=== PATIENT | female | born 1995 | race Caucasian/White ===

== ENCOUNTER 2017-10-16 15:02 | Outpatient (CLI) | payer MEDICAID, OTHER ==
[~2017-10-16] VITALS: Ht 162.6 cm; Wt 70.9 kg
[~2017-10-16 15:02] MED LIST: IBUP-1222 PO; OXYC-302 PO; SENN-92 PO
[2017-10-16 15:20] VITALS: BP 122/72
[2017-10-16 16:11] LABS: MICROSCOPIC AUTO
[2017-10-16] MEDS ORDERED: PREN1TAB69 PO (17:25)
== END 2017-10-16 17:52 | disposition home or self-care (01) ==
LOC: LDOP 15:02
PROVIDERS: ATTEND Obstetrics & Gynecology Maternal & Fetal Medicine
DX: Z34.82 Encounter for supervision of other normal pregnancy, second trimester (principal); Z3A.27 27 weeks gestation of pregnancy
CPT/HCPCS: 59025; 81001; 99201; G0463

== ENCOUNTER 2017-10-17 21:50 | Observation (INO) | payer MEDICAID, OTHER ==
[~2017-10-17] VITALS: Ht 162.6 cm; Wt 68.1 kg
[~2017-10-17 21:50] MED LIST changes: +PREN1TAB69 PO
[2017-10-17] MEDS ORDERED: ONDANSETRON 2MG/ML, 2ML ONE (21:57)
[2017-10-17] MEDS ORDERED: LACTATED RINGERS 1,000 ML IVBOLUS ONE (22:00)
[2017-10-17] MEDS ORDERED: D5%-LACTATED RINGERS 1,000 ML IV SCH (22:00)
[2017-10-17] MEDS: ONDANSETRON 2MG/ML, 2ML IVPush PRN (22:08)
[2017-10-17 22:22] VITALS: BP 122/74
[2017-10-17] MEDS ORDERED: METOCLOPRAMIDE 5 MG/ML, 2ML ONE (22:37)
[2017-10-17] MEDS ORDERED: DIPHENHYDRAMINE 50 MG/ML, 1ML ONE (22:37)
[2017-10-17 22:38] LABS: BASOPHILS % (AUTO) 0 % (0-1); EOSINOPHILS # (AUTO) 0.03 x10^3/uL (0-0.4); EOSINOPHILS % (AUTO) 0 % (1-7); LYMPHOCYTES # (AUTO) 0.99 x10^3/uL (1-3.4); LYMPHOCYTES % (AUTO) 9 % (22-44); MD NO; MEAN CORPUSCULAR HEMOGLOBIN 32.1 pg (27.0-34.8); MEAN CORPUSCULAR HGB CONC 33.7 g/dL (32.4-35.8); MEAN CORPUSCULAR VOLUME 95.2 fL (80-100); MEAN PLATELET VOLUME 9.5 fL (7.4-10.4); MONOCYTES # (AUTO) 0.38 x10^3/uL (0.2-0.8); MONOCYTES % (AUTO) 4 % (2-9); NEUTROPHILS # (AUTO) 9.57 x10^3/uL (1.8-6.8); NEUTROPHILS % (AUTO) 87 % (42-75); PLATELET COUNT 262 x10^3/uL (130-400); RED BLOOD COUNT 3.86 x10^6/uL (3.82-5.3); RED CELL DISTRIBUTION WIDTH 14.8 % (9.6-15.2)
[2017-10-17 22:39] LABS: ALBUMIN 3.6 g/dL (3.4-5.0); ANION GAP 8 mmol/L (5-15); CALCIUM 8.7 mg/dL (8.5-10.1); CHLORIDE 105 mmol/L (98-107)
[2017-10-17 22:42] LABS: ALANINE AMINOTRANSFERASE 14 U/L (12-78); ALKALINE PHOSPHATASE 67 U/L (45-117); BILIRUBIN,TOTAL 0.3 mg/dL (0.2-1.0); CREATININE 0.71 mg/dL (0.55-1.02)
[2017-10-17] MEDS ORDERED: DIPHENHYDRAMINE 50 MG/ML, 1ML IVPush ONE (23:00)
[2017-10-17] MEDS ORDERED: PLEASE ENTER HEIGHT AND WEIGHT MC SCH (23:00)
[2017-10-17] MEDS ORDERED: METOCLOPRAMIDE 5 MG/ML, 2ML IVPush ONE (23:00)
[2017-10-17] MEDS ORDERED: PROMETHAZINE 25 MG/ML, 1ML IM ONE (23:30)
[2017-10-17] MEDS ORDERED: PROMETHAZINE 25 MG/ML, 1ML ONE (23:45)
[2017-10-18] MEDS ORDERED: PROCHLORPERAZINE 5 MG/ML, 2ML IM ONE (01:00)
[2017-10-18] MEDS ORDERED: ONDANSETRON 2MG/ML, 2ML ONE (04:45)
[2017-10-18] MEDS: ONDANSETRON 2MG/ML, 2ML IVPush PRN (04:49)
[2017-10-18] MEDS ORDERED: ONDA4TAB10 PO (06:25)
== END 2017-10-18 06:39 | disposition home or self-care (01) ==
LOC: LDOP 21:50 → LDIP 22:45
PROVIDERS: ADMIT Obstetrics & Gynecology Maternal & Fetal Medicine; ATTEND Obstetrics & Gynecology Maternal & Fetal Medicine
DX: O21.2 Late vomiting of pregnancy (principal); Z3A.26 26 weeks gestation of pregnancy
CPT/HCPCS: 36415; 59025; 80053; 83690; 85025; 96361; 96372; 96374; 96375; 96376; G0378; J0780; J1200; J2405; J2550; J2765; J7120; J7121; 96360; 99211; G0463

== ENCOUNTER 2018-01-14 05:00 | Inpatient (IN) | payer MEDICAID ==
[~2018-01-14] VITALS: Ht 165.1 cm; Wt 72.7 kg
[~2018-01-14 05:00] MED LIST changes: +ONDA4TAB10 PO
[2018-01-14] MEDS ORDERED: LACTATED RINGERS 1,000 ML IV SCH (05:04)
[2018-01-14] MEDS ORDERED: OXYTOCIN 30U/ 0.9% NaCL 500ML 500 ML IV PRN (05:04)
[2018-01-14] MEDS ORDERED: OXYTOCIN 30U/ 0.9% NaCL 500ML 500 ML IV ONE (05:04)
[2018-01-14] MEDS ORDERED: D5%-LACTATED RINGERS 1,000 ML IV SCH (05:04)
[2018-01-14] MEDS ORDERED: FENTANYL PF 100 MCG/2ML IV PRN (05:30)
[2018-01-14] MEDS ORDERED: TERBUTALINE 1 MG/ML, 1ML IVPush PRN (05:30)
[2018-01-14] MEDS ORDERED: FENTANYL PF 100 MCG/2ML IVPush PRN (05:30)
[2018-01-14 05:41] VITALS: BP 107/62
[2018-01-14 05:45] LABS: BASOPHILS # (AUTO) 0.06 x10^3/uL (0-0.1); BASOPHILS % (AUTO) 1 % (0-1); EOSINOPHILS % (AUTO) 1 % (1-7); LYMPHOCYTES # (AUTO) 1.65 x10^3/uL (1-3.4); LYMPHOCYTES % (AUTO) 19 % (22-44); MD NO; MEAN CORPUSCULAR HEMOGLOBIN 31.2 pg (27.0-34.8); MEAN CORPUSCULAR HGB CONC 34.2 g/dL (32.4-35.8); MEAN CORPUSCULAR VOLUME 91.2 fL (80-100); MEAN PLATELET VOLUME 8.8 fL (7.4-10.4); MONOCYTES # (AUTO) 0.65 x10^3/uL (0.2-0.8); MONOCYTES % (AUTO) 7 % (2-9); NEUTROPHILS # (AUTO) 6.44 x10^3/uL (1.8-6.8); NEUTROPHILS % (AUTO) 72 % (42-75); PLATELET COUNT 230 x10^3/uL (130-400); RED BLOOD COUNT 3.34 x10^6/uL (3.82-5.3); RED CELL DISTRIBUTION WIDTH 14.7 % (9.6-15.2)
[2018-01-14] MEDS ORDERED: MISOPROSTOL 200 MCG TABLET ONE (05:51)
[2018-01-14] MEDS ORDERED: OXYTOCIN 30U/ 0.9% NaCL 500ML 500 ML ONE (05:51)
[2018-01-14] MEDS ORDERED: LIDOCAINE/PF 1%, 30ML ONE (05:51)
[2018-01-14] MEDS ORDERED: FENTANYL/BUPIV./NS/PF 250 ML EPIDCONT SCH ×3 (06:45→08:04)
[2018-01-14] MEDS ORDERED: NALOXONE 0.4 MG/ML, 1ML IVPush PRN (08:30)
[2018-01-14] MEDS ORDERED: LACTATED RINGERS 1,000 ML IVBOLUS PRN (08:30)
[2018-01-14] MEDS ORDERED: EPHEDRINE 50 MG/ML, 1ML IVPush PRN (08:30)
[2018-01-14] MEDS ORDERED: FENTANYL PF 500 MCG, BUPIVACAINE/PF 0.5%, 30ML 62.5 ML in SODIUM CHLORIDE 0.9% 177.5 ML EPIDCONT SCH (09:30)
[2018-01-14] MEDS ORDERED: FENTANYL PF 100 MCG/2ML ONE (09:49)
[2018-01-14] MEDS ORDERED: BUPIVACAINE 0.25% ONE (10:20)
[2018-01-14] MEDS: LACTATED RINGERS 1,000 ML IV SCH ×2 (14:18→16:04)
[2018-01-14] MEDS ORDERED: IBUPROFEN 600 MG TABLET ONE (17:40)
[2018-01-14] MEDS: IBUPROFEN 600 MG TABLET PO PRN (17:44)
[2018-01-14] MEDS: OXYTOCIN 30U/ 0.9% NaCL 500ML 500 ML IV SCH (17:45)
[2018-01-14] MEDS ORDERED: DOCUSATE 100 MG CAPSULE PO PRN (18:00)
[2018-01-14] MEDS ORDERED: OXYcodone IR 5MG TABLET PO PRN ×2 (18:00)
[2018-01-14] MEDS ORDERED: ACETAMINOPHEN 325 MG TABLET PO PRN (18:00)
[2018-01-14 19:30] VITALS: BP 110/73
[2018-01-14] MEDS: OXYcodone/APAP 5/325MG TABLET PO PRN (20:57)
[2018-01-15] MEDS: LACTATED RINGERS 1,000 ML IV SCH ×3 (00:04→16:04)
[2018-01-15 00:30] VITALS: BP 101/65
[2018-01-15 00:56] LABS: BASOPHILS # (AUTO) 0.02 x10^3/uL (0-0.1); BASOPHILS % (AUTO) 0 % (0-1); EOSINOPHILS # (AUTO) 0.08 x10^3/uL (0-0.4); EOSINOPHILS % (AUTO) 1 % (1-7); LYMPHOCYTES # (AUTO) 1.39 x10^3/uL (1-3.4); LYMPHOCYTES % (AUTO) 14 % (22-44); MD NO; MEAN CORPUSCULAR HEMOGLOBIN 31.4 pg (27.0-34.8); MEAN CORPUSCULAR HGB CONC 34.3 g/dL (32.4-35.8); MEAN CORPUSCULAR VOLUME 91.7 fL (80-100); MEAN PLATELET VOLUME 9.2 fL (7.4-10.4); MONOCYTES # (AUTO) 0.74 x10^3/uL (0.2-0.8); MONOCYTES % (AUTO) 7 % (2-9); NEUTROPHILS # (AUTO) 7.87 x10^3/uL (1.8-6.8); NEUTROPHILS % (AUTO) 78 % (42-75); PLATELET COUNT 201 x10^3/uL (130-400); RED BLOOD COUNT 3.17 x10^6/uL (3.82-5.3); RED CELL DISTRIBUTION WIDTH 14.9 % (9.6-15.2)
[2018-01-15] MEDS: IBUPROFEN 600 MG TABLET PO PRN ×3 (01:00→16:15)
[2018-01-15] MEDS: OXYcodone/APAP 5/325MG TABLET PO PRN ×3 (01:00→11:29)
[2018-01-15] MEDS: OXYTOCIN 30U/ 0.9% NaCL 500ML 500 ML IV SCH ×2 (03:31→13:31)
[2018-01-15 05:00] VITALS: BP 107/69
[2018-01-15 07:45] VITALS: BP 111/75
[2018-01-15] MEDS ORDERED: PRENATAL VIT/IRON/FA 1 EACH TABLET PO SCH (09:00)
[2018-01-15 11:38] VITALS: BP 111/76
== END 2018-01-15 17:45 | disposition home or self-care (01) | DRG 807 ==
LOC: LDIP 05:00 → 2NW 19:25
PROVIDERS: ADMIT Obstetrics & Gynecology Maternal & Fetal Medicine; ATTEND Obstetrics & Gynecology Maternal & Fetal Medicine
PROC: 10E0XZZ Delivery of Products of Conception, External Approach (ICD-10-PCS; principal; 2018-01-14)
PROC: 0HQ9XZZ Repair Perineum Skin, External Approach (ICD-10-PCS; 2018-01-14)
PROC: 10907ZC Drainage of Amniotic Fluid, Therapeutic from Products of Conception, Via Natural or Artificial Opening (ICD-10-PCS; 2018-01-14)
PROC: 10H07YZ Insertion of Other Device into Products of Conception, Via Natural or Artificial Opening (ICD-10-PCS; 2018-01-14)
PROC: 3E0R3BZ Introduction of Anesthetic Agent into Spinal Canal, Percutaneous Approach (ICD-10-PCS; 2018-01-14)
PROC: 00HU33Z Insertion of Infusion Device into Spinal Canal, Percutaneous Approach (ICD-10-PCS; 2018-01-14)
DX: O70.0 First degree perineal laceration during delivery (principal); Z37.0 Single live birth; Z3A.39 39 weeks gestation of pregnancy
CPT/HCPCS: 36415; J7121; 85025; 86850; 86900; G0378; J3010; J3490; J2590; J7050; J7120